=== PATIENT | male | born 2000 | race Caucasian/White ===

== ENCOUNTER 2024-01-23 18:25 | Emergency (ER) | payer SELFPAY ==
[~2024-01-23] VITALS: Ht 188 cm; Wt 81.8 kg
[2024-01-23 18:43] VITALS: BP 146/65; TEMP 98.5
[2024-01-23 22:15] VITALS: PULSE 75
== END 2024-01-23 22:18 | disposition home or self-care (01) ==
LOC: COL.ER 18:25
DX: S61.011A Laceration without foreign body of right thumb without damage to nail, initial encounter (principal); W26.0XXA Contact with knife, initial encounter; Y93.G1 Activity, food preparation and clean up; Y92.511 Restaurant or cafe as the place of occurrence of the external cause; Y99.0 Civilian activity done for income or pay